=== PATIENT | female | born 1955 | race Caucasian/White ===

== ENCOUNTER 2021-11-03 11:40 | Emergency (ER) | payer OTHER ==
[2021-11-03] MEDS ORDERED: NORFLEX 100 MG100 MG PO (14:30)
[2021-11-03] MEDS ORDERED: NAPROXEN500 MG PO (14:30)
== END 2021-11-03 15:30 | disposition home or self-care (01) ==
LOC: ER1 11:40
DX: S13.4XXA Sprain of ligaments of cervical spine, initial encounter (principal); S39.012A Strain of muscle, fascia and tendon of lower back, initial encounter; E10.9 Type 1 diabetes mellitus without complications; Z88.0 Allergy status to penicillin; Z95.5 Presence of coronary angioplasty implant and graft; V49.40XA Driver injured in collision with unspecified motor vehicles in traffic accident, initial encounter; Y92.410 Unspecified street and highway as the place of occurrence of the external cause
CPT/HCPCS: 71045; 72125; 72131; 73060; 73552; 99284

== ENCOUNTER → 2021-11-06 | Outpatient (CLI) | payer MEDICARE ==
[~2021-11-06] MED LIST: NAPROXEN500 MG PO; NORFLEX 100 MG100 MG PO
== END ==
LOC: US 13:13
DX: M79.89 Other specified soft tissue disorders (principal)
CPT/HCPCS: 93922; 93925

== ENCOUNTER → 2021-11-25 | Outpatient (CLI) | payer OTHER | LOC: RAD 11:22 | DX: M79.601 Pain in right arm (principal); M19.011 Primary osteoarthritis, right shoulder | CPT/HCPCS: 73030; 73060 ==